=== PATIENT | female | born 1990 | race Asian ===

== ENCOUNTER 2017-06-06 13:14 | Emergency (ER) | payer SELFPAY ==
[~2017-06-06] VITALS: Ht 157.5 cm; Wt 57.7 kg
[2017-06-06] MEDS ORDERED: IBUPROFEN 200 MG TABLET ONE (14:05)
[2017-06-06] MEDS ORDERED: LORazepam 1MG TABLET ONE (14:05)
[2017-06-06] MEDS ORDERED: LORazepam 1MG TABLET PO ONE (14:30)
[2017-06-06] MEDS ORDERED: IBUPROFEN 200 MG TABLET PO ONE (14:30)
[2017-06-06 15:05] VITALS: BP 122/81
== END 2017-06-06 15:30 | disposition home or self-care (01) ==
LOC: ED 15:15
DX: S63.502A Unspecified sprain of left wrist, initial encounter (principal); Y04.0XXA Assault by unarmed brawl or fight, initial encounter
CPT/HCPCS: 29125